=== PATIENT | male | born 1990 | race Caucasian/White ===

== ENCOUNTER 2022-07-25 10:31 | Emergency (ER) | payer BC, SELFPAY ==
[2022-07-25 11:03] VITALS: BP 145/68; PULSE 72; RESP 17; TEMP 36.1; O2SAT 100; BMI 27.9
--- NOTE | 2022-07-25 12:28 | ED.GENADULT ---
HPI - General Adult General Chief complaint: Skin/Abscess/Foreign Body Stated complaint: Cysts Time Seen by Provider: 07/25/22 12:28 Source: patient Mode of arrival: ambulatory Limitations: no limitations History of Present Illness HPI narrative: Patient is a 31 year old assigned male at with a history of pilonidal cysts presenting to the emergency department today with another pilonidal cyst. Patient states that he has had pilonidal cysts in the past that have needed to be cut open. Patient states that he has been referred to a general surgeon before but has never followed up. Patient states that he has a cyst now and it has been getting worse over the last week. Patient denies any dizziness, lightheadedness, abdominal pain, nausea, vomiting, fever, chills, blurry vision, double vision, loss of vision, chest pain, difficulty breathing, shortness of breath, back pain, night sweats, pain with urination, increased urinary frequency, increased urinary urgency, blood in his urine or stool, syncope or a near syncopal episode, recent trauma or falls, bowel incontinence, bladder incontinence, bowel retention, bladder retention, or any other complaints at this time. Onset (ago): week(s) (1) Location: buttocks Radiation: non-radiation Severity: mild Severity scale (1-10): 3 Quality: dull Pain Consistency: constant Relieving factors: none Exacerbating factors: none Associated symptoms: denies other symptoms Treatments prior to arrival: none Related Data Allergies Allergy/AdvReac Type Severity Reaction Status Date / Time No Known Allergies Allergy Unverified 06/12/20 16:08 [No Known Allergies*] Review of Systems Constitutional: Constitutional: Reports no additional constitutional complaints, Denies chills, Denies fever(s) and Denies night sweats Eyes: Eyes: Reports no additional eye complaints, Denies blurry vision, Denies change in vision, Denies diplopia, Denies eye discharge, Denies loss of vision and Denies eye pain ENT: Denies dizziness Cardiovascular: Cardiovascular: Reports no additional cardiovascular complaints, Denies chest pain, Denies lightheadedness, Denies Loss of Consciousness and Denies dyspnea Respiratory: Respiratory: Reports no additional respiratory complaints and Denies dyspnea Gastrointestinal: Gastrointestinal: Reports no additional gastrointestinal complaints, Denies abdominal pain, Denies melena, Denies hematochezia, Denies change in bowel habits and Denies change in stool character Genitourinary: Genitourinary: Reports no additional male genitourinary complaints, Denies hematuria, Denies oliguria, Denies difficulty urinating, Denies dysuria, Denies urinary frequency, Denies urinary hesitancy, Denies urinary incontinence and Denies urinary urgency Musculoskeletal: Musculoskeletal: Reports no additional musculoskeletal complaints, Denies numbness and Denies tingling Integumentary/Breasts: Comments: cyst on left side of gluteal cleft Neurologic: Denies dizziness, Denies loss of vision, Denies numbness and Denies tingling Psychiatric: Psychiatric: Reports no additional psychiatric complaints Endocrine: Endocrine: Reports no additional endocrine complaints Hematologic/Lymphatic: Hematologic/Lymphatic: Reports no additional hematologic/lymphatic complaints Allergic/Immunologic: Allergic/Immunologic: Reports no additional allergic/immunologic complaints [facility] Past Medical History Attestation statement: The following information was validated with the patient. Source: old records reviewed Social History Social History Advance Directives: No Advance Directives Information Provided: No Physical Exam ED Vital Signs: Vital Signs - 24 hr 07/25/22 11:03 Temperature 96.9 F Pulse Rate 72 Respiratory Rate 17 Blood Pressure 145/68 H Pulse Oximetry 100 Oxygen Delivery Method Room Air BMI result Body Mass Index 27.9 Const General: cooperative, no acute distress, alert and awake Nutritional Appearance: well nourished Orientation/consciousness: patient oriented x3 Limitations: no limitations HENMT Head: Yes normal to inspection and Yes atraumatic Ears: hearing grossly normal bilaterally and external ears normal General nose exam: Normal external nose present, no nasal discharge noted and no epistaxis Face and sinus: Yes normal facial exam, No abrasion and No laceration Mouth: Normal oral and palatal mucosa present, no drooling and no muffled voice Eyes General: appearance normal, both eyes and all related structures Periorbital: periorbital findings normal Eyelids: Yes eyelids normal Conjunctivae: conjunctivae normal Pupils: Equal, round and reactive pupils present EOM: EOMs intact bilaterally Neck Neck: Yes normal visual inspection, Yes full ROM and Yes no lymphadenopathy Chest Chest palpation & inspection: normal inspection of the chest Resp Effort & Inspection: normal respiratory effort and able to speak in complete sentences Auscultation: clear to auscultation bilaterally Cardio Rate: regular rate Rhythm: regular rhythm GI Inspection: Yes normal to inspection Skin Other: small area of firmness to the superior aspect of the left gluteal cleft, no fluctuance, no erythema, no warmth Neuro General: patient oriented x3 and moves all extremities Cranial nerves: Yes Equal, round and reactive pupils present Cognition (Neuro): normal cognition Motor exam (neuro): 5/5 motor strength present throughout Sensory Exam: Normal double simultaneous stimulation for sensation Coordination: [id number] test normal Extrem General: Yes normal to inspection, Yes full ROM and Yes capillary refill normal Psych Appearance: grossly normal Mental Status: mental status grossly normal Affect: normal affect Attitude: cooperative Thought process: Normal thought process present Thought content: Normal thought content present Insight: Good insight present (Psych) Medical Decision Making MDM Narrative Medical decision making narrative: Patient is a 31 year old assigned male at with a history of pilonidal cysts presenting to the emergency department today with a pilonidal cyst. Patient's physical exam showed a small area of firmness to the superior aspect of the left gluteal cleft with no erythema, warmth, or fluctuance. I explained my physical exam findings to the patient. I answered all questions asked by the patient. I stressed the importance of the patient taking his medication as prescribed. I stressed the importance of the patient following up with his primary care provider and a general surgeon. I stressed the importance of the patient returning to the emergency department immediately if his symptoms were to worsen or if he were to develop any dizziness, shortness of breath, difficulty breathing, chest pain, blurry vision, loss of vision, nausea, vomiting, abdominal pain, fever, chills, back pain, or any other complaints. Patient verbalized agreement and understanding with this treatment plan and discharge. Medical Records Medical records reviewed: Yes I reviewed the patient's medical records. Discharge Plan Discharge Clinical Impression: Pilonidal cyst Patient Disposition: Home, Self-Care Instructions: Pilonidal Cyst (ED) Additional Instructions: You have a pilonidal cyst that has not yet become an abscess requiring opening. Apply warm compresses to the area. Follow up with your primary care provider and a general surgeon. Return to the emergency department immediately if your symptoms worsen or if you develop any dizziness, shortness of breath, difficulty breathing, chest pain, blurry vision, loss of vision, nausea, vomiting, abdominal pain, fever, chills, back pain, or any other complaints. Referrals: [facility] [place] General Surgeons [Provider Group] (Call to establish and follow up with a general surgeon. ) Jean Paul Bird MD [Primary Care Provider] - Stand Alone Forms: Work/School Release Print Language: Italian
== END 2022-07-25 13:00 | disposition home or self-care (01) ==
PROVIDERS: Emergency Provider Emergency Medicine; PCP Hospitalist
DX: L05.91 Pilonidal cyst without abscess (principal)
CPT/HCPCS: 99281

== ENCOUNTER 2022-08-31 06:21 | Day surgery (SDC) | payer BC, SELFPAY ==
[2022-08-25 11:00] VITALS: BMI 30.1
--- NOTE | 2022-08-30 09:09 | HO.ANESPROP2 ---
Documented by User: Lucia Nassar NP 08/30/22 09:10 HPI - Anesthesia Eval Consult details Narrative: 31yo M for [facility]cision [facility] Active Problems Active Problems: All Active Problems (Updated 08/09/22 @ 15:42 by Samson Hatch MD) Sacrococcygeal pilonidal cyst (Acute) Past Medical History Medical History Sacrococcygeal pilonidal cyst Surgical History Surgical History History of mandibular surgery History of surgery on lower extremity Social History Social History Alcohol intake: never Patient Tobacco Use Status: Never used Tobacco Use of substances other than those prescribed or required for medical reasons: No Are you DNR?: No Advance Directives: No Advance Directives Information Provided: Yes Meds Allergies Allergy/AdvReac Type Severity Reaction Status Date / Time No Known Allergies Allergy Verified 08/31/22 06:30 [No Known Allergies*] Exam Exam Date and Time: August 30, 2022 0909 Height,Weight and Vital Signs: Height 5 ft 10 in Weight 95.254 kg Assessment and Plan Assessment Anesthesia Assessment: Chart Reviewed Documented by User: Leyla Gallagher MD 08/31/22 08:21 [facility] Past Medical History Medical History Sacrococcygeal pilonidal cyst Family History Family history of problems with anesthesia: No Surgical History Surgical History History of mandibular surgery History of surgery on lower extremity History of Problems with Anesthesia: No Social History Social History Alcohol intake: never Patient Tobacco Use Status: Never used Tobacco Use of substances other than those prescribed or required for medical reasons: No Are you DNR?: No Advance Directives: No Advance Directives Information Provided: Yes Meds Allergies Allergy/AdvReac Type Severity Reaction Status Date / Time No Known Allergies Allergy Verified 08/31/22 06:30 [No Known Allergies*] Exam Height,Weight and Vital Signs: Height 5 ft 10 in Weight 95.254 kg Vital Signs Temp Pulse Resp BP Pulse Ox O2 Del Method 08/31/22 06:43 97.7 F 72 15 132/79 99 Room Air Airway Mallampati Class: II TM Dist: >3cm Neck ROM: Full Loose/Missing/Broken Teeth: Yes (Missing tooth top left. Denies broken or loose teeth) Heart: RRR Lungs: CTAB Assessment and Plan Assessment Anesthesia Assessment: Anesthesia Plan Discussed Final Anesthetic Review Family History of Problems with Anesthesia: No History of Problems with Anesthesia: No NPO: Yes ASA Class: I Final Preanesthetic Review: No Changes in Pt Med Stat, Meds/Allgs Chart Reviewed, Consent Obtained/Reviewed and Anes Risks/Benef Reviewed Patient Risk: Low Procedure Risk: Low Assessment/Block/Sedation in SS: Assess/Block/Sedation-SS Anesthetic Plan Anesthetic Plan: GA Disposition: Standard PACU
[2022-08-31] VITALS (7 sets, daily range): BP systolic 123–144; BP diastolic 69–86; PULSE 63–81; RESP 10–16; TEMP 36.1–36.9; O2SAT 98–100
[2022-08-31] MEDS: Lactated Ringers 1,000 ML 100 ML IVCONT (06:52)
--- NOTE | 2022-08-31 07:11 | P.CONAN_ITS ---
[facility] Active Problems Active Problems: All Active Problems (Updated 08/09/22 @ 15:42 by Samson Hatch MD) Sacrococcygeal pilonidal cyst (Acute) Past Medical History Medical History Sacrococcygeal pilonidal cyst Functional capacity: independent ambulation Family History Family history of problems with anesthesia: No Surgical History Surgical History History of mandibular surgery History of surgery on lower extremity History of Problems with Anesthesia: No Social History Social History Alcohol intake: never Patient Tobacco Use Status: Never used Tobacco Use of substances other than those prescribed or required for medical reasons: No Are you DNR?: No Advance Directives: No Advance Directives Information Provided: Yes Travel History History of recent travel: No Narrative Narrative: NPO since 8 pm yesterday Meds Allergies Allergy/AdvReac Type Severity Reaction Status Date / Time No Known Allergies Allergy Verified 08/31/22 06:30 [No Known Allergies*] Active Medications: Current Medications Lactated Ringer's (Lr) 1,000 mls @ 100 mls/hr IVCONT .Q10H CHUCK Last Admin: 08/31/22 06:52 Dose: 100 mls/hr Home Medications Medication Instructions Recorded Confirmed Last Taken Type No Known Home Meds 08/09/22 08/25/22 Unknown History Exam Exam Date and Time: August 31, 2022 0711 Height,Weight and Vital Signs: Height 5 ft 10 in Weight 95.254 kg Last Vital Signs Temp 97.7 F 08/31/22 06:43 Pulse 72 08/31/22 06:43 Resp 15 08/31/22 06:43 BP 132/79 08/31/22 06:43 Pulse Ox 99 08/31/22 06:43 O2 Del Method 08/31/22 06:43 Airway Mallampati Class: II TM Dist: >3cm Neck ROM: Full Loose/Missing/Broken Teeth: No Heart: S1S2 Lungs: clear all throughout Assessment and Plan Final Anesthetic Review Family History of Problems with Anesthesia: No History of Problems with Anesthesia: No Final Preanesthetic Review: No Changes in Pt Med Stat, Meds/Allgs Chart Reviewed, Consent Obtained/Reviewed and Anes Risks/Benef Reviewed Patient Risk: Low Procedure Risk: Low Anesthetic Plan Anesthetic Plan: GA Disposition: Standard PACU
--- NOTE | 2022-08-31 07:21 | MHC.SHP ---
Pre-Procedural Eval Section A Date of Service: 08/31/22 The patient is an INPATIENT: No Changes since office visit: No Cold of Flu in the past 2 weeks, No New Medical Problems, No Changes in Medication and No Patient answered all questions The History & Physical has been completed within 30 days and I have reviewed it.: Yes Section B Chief Complaint: Pilonidal cyst without abscess Allergies: Allergies Allergy/AdvReac Type Severity Reaction Status Date / Time No Known Allergies Allergy Verified 08/31/22 06:30 [No Known Allergies*] Plan I have reviewed the history and physical and performed a pertinent physical examination on my patient. No changes have occurred unless specified.
--- NOTE | 2022-08-31 08:40 | W.PM.OPN ---
Operative Note Operative Note Date of Service: 08/31/22 Narrative: Preop diagnosis: Pilonidal cyst, sacrococcygeal area Postop diagnosis: Pilonidal cyst, sacrococcygeal area Procedure: Excision of pilonidal cyst, sacrococcygeal area Surgeon: Samson Hatch MD broker assistant: MARILY Briones The patient is a 31-year-old male with a recurrent area of pain, swelling and tenderness on the tailbone. He has had an I and D in the past. Examination in the office showed a midline pits with an induration to the left of the midline superior to this. This was consistent with a pilonidal cyst. He understood the technique of excision under anesthesia. He was aware of the risks, benefits, and alternatives He was brought to the operating room. He was placed in prone to position under general anesthesia via endotracheal tube. The buttocks were retracted laterally to expose the midline cleft. Again, the midline pit was noted along with induration above this to the left of the midline. I marked the planned line of incision and infiltrated this with lidocaine 1%. I made the elliptical incision using blade 15. This was carried down through the full-thickness of the skin subcutaneous fat to excise this entire he is getting subcutaneous tissue. This was extended in view of the presence of indurated tissue in the deep subcutaneous layer. I used electrocautery to excise this entire area this was sent as specimen. The excised area was about 8 cm by 3 cm in diameter. This was deep down to just above the layer of the coccyx and sacrum. I used electrocautery to achieve hemostasis as there was lot of oozing throughout the cavity from inflammation. I irrigated. We observed for hemostasis. Once hemostasis was achieved, I proceeded to develop flaps of thick subcutaneous layer on both sides to allow closure without tension. Closed the deep subcutaneous layer with Dexon 3-0 interrupted sutures. Skin closure was achieved with nylon 3-0 vertical mattress sutures alternating with simple interrupted sutures. The incision was infiltrated with Marcaine 0.5% for postop analgesia. Dressings were applied. The procedure was completed. The patient tolerated procedure well. There were no immediate complications. Initial and final counts of sponges and instruments were correct. Estimated blood loss was about 25 cc The patient was extubated without difficulty and transferred to the recovery room with stable vital signs.
[2022-08-31] MEDS: Acetaminophen 325 MG TABLET 650 MG PO (09:39)
[2022-08-31] MEDS: oxyCODONE HCl Immed Release 5 MG TABLET PO (09:40)
== END 2022-08-31 10:09 | disposition home or self-care (01) ==
PROVIDERS: PCP Hospitalist; Visit Provider Surgery
PROC: (CPT 11772; principal; 2022-08-31 07:30)
DX: L05.91 Pilonidal cyst without abscess (principal)
CPT/HCPCS: 11772; 88304; J0690; J1100; J2250; J2405; J2795; J3010

== ENCOUNTER 2023-11-25 19:47 | Emergency (ER) | payer BC, SELFPAY ==
[2023-11-25 19:50] VITALS: BP 154/97; PULSE 96; RESP 14; TEMP 36.3; O2SAT 99; BMI 30.5
--- NOTE | 2023-11-25 19:51 | ED_ITS ---
HPI - General Adult General Chief complaint: Allergic Reaction Stated complaint: reaction to new medication Time Seen by Provider: 11/25/23 22:22 Source: patient Mode of arrival: ambulatory Limitations: no limitations History of Present Illness HPI narrative: Patient is a 33 year old assigned male at with a history of social anxiety presenting to the emergency department today after an adverse reaction to laura lafaxine. Patient states that he took his first dose of venlafaxine this evening and 20 minutes later, he had an episode of feeling shaky and feeling as though his heart was racing. Patient denies any dizziness, lightheadedness, abdominal pain, nausea, vomiting, fever, chills, blurry vision, double vision, loss of vision, chest pain, difficulty breathing, shortness of breath, back pain, night sweats, pain with urination, increased urinary frequency, increased urinary urgency, blood in his urine or stool, syncope or a near syncopal episode, recent trauma or falls, bowel incontinence, bladder incontinence, bowel retention, bladder retention, or any other complaints at this time. Relieving factors: none Exacerbating factors: none Associated symptoms: denies other symptoms Treatments prior to arrival: none Related Data Previous Rx's Medication Instructions Recorded ibuprofen 600 mg tablet 600 mg PO Q6H PRN pain #30 tabs 08/31/22 oxycodone-acetaminophen 5 mg-325 1 tab PO Q4-6H PRN pain #30 tabs 08/31/22 mg tablet (Percocet) Allergies Allergy/AdvReac Type Severity Reaction Status Date / Time No Known Allergies Allergy Verified 11/25/23 19:50 [No Known Allergies*] Review of Systems Constitutional: Constitutional: Reports no additional constitutional complaints, Denies chills, Denies fever(s) and Denies night sweats Eyes: Eyes: Reports no additional eye complaints, Denies blurry vision, Denies change in vision, Denies diplopia, Denies eye discharge, Denies loss of vision and Denies eye pain ENT: Denies dizziness Cardiovascular: Cardiovascular: Reports no additional cardiovascular complaints, Denies chest pain, Denies lightheadedness, Denies Loss of Consciousness, Reports palpitations and Denies dyspnea Respiratory: Respiratory: Reports no additional respiratory complaints and Denies dyspnea Gastrointestinal: Gastrointestinal: Reports no additional gastrointestinal complaints, Denies abdominal pain, Denies melena, Denies hematochezia, Denies change in bowel habits and Denies change in stool character Genitourinary: Genitourinary: Reports no additional male genitourinary complaints, Denies hematuria, Denies oliguria, Denies difficulty urinating, Denies dysuria, Denies urinary frequency, Denies urinary hesitancy, Denies urinary incontinence and Denies urinary urgency Musculoskeletal: Musculoskeletal: Reports no additional musculoskeletal complaints, Denies numbness and Denies tingling Neurologic: Denies dizziness, Denies loss of vision, Denies numbness and Denies tingling Psychiatric: Psychiatric: Reports no additional psychiatric complaints Endocrine: Endocrine: Reports no additional endocrine complaints and Reports palpitations Hematologic/Lymphatic: Hematologic/Lymphatic: Reports no additional hematologi c/lymphatic complaints Allergic/Immunologic: Allergic/Immunologic: Reports no additional allergic/immunologic complaints [facility] Past Medical History Attestation statement: The following information was validated with the patient. Source: old records reviewed and nursing notes reviewed Medical History Sacrococcygeal pilonidal cyst Surgical History History of excision of pilonidal cyst History of surgery on lower extremity History of mandibular surgery Social History Social History Alcohol intake: never Comment: IMPROVED, MEDICATED AT 0940 WITH TYLENOL AND OXYCODONE Patient Tobacco Use Status: Never used Tobacco Advance Directives: No Advance Directives Information Provided: No Physical Exam ED Vital Signs: Vital Signs - 24 hr 11/25/23 19:50 11/25/23 22:22 Temperature 97.4 F 97.8 F Pulse Rate 96 68 Respiratory Rate 14 14 Blood Pressure 154/97 H 153/84 H Pulse Oximetry 99 96 Oxygen Delivery Method Room Air Room Air BMI result Body Mass Index 30.5 Const General: cooperative, no acute distress, alert and awake Nutritional Appearance: well nourished Orientation/consciousness: patient oriented x3 Limitations: no limitations HENMT Head: Yes normal to inspection and Yes atraumatic Ears: hearing grossly normal bilaterally and external ears normal General nose exam: Normal external nose present, no nasal discharge noted and no epistaxis Face and sinus: Yes normal facial exam, No abrasion and No laceration Mouth: Normal oral and palatal mucosa present, no drooling and no muffled voice Eyes General: appearance normal, both eyes and all related structures Periorbital: periorbital findings normal Eyelids: Yes eyelids normal Conjunctivae: conjunctivae normal Pupils: Equal, round and reactive pupils present EOM: EOMs intact bilaterally Neck Neck: Yes normal visual inspection, Yes full ROM and Yes no lymphadenopathy Chest Chest palpation & inspection: normal inspection of the chest Resp Effort & Inspection: normal respiratory effort and able to speak in complete sentences Cardio Rate: regular rate Rhythm: regular rhythm GI Inspection: Yes normal to inspection Neuro General: patient oriented x3 and moves all extremities Cranial nerves: Yes Equal, round and reactive pupils present Cognition (Neuro): normal cognition Motor exam (neuro): 5/5 motor strength present throughout Sensory Exam: Normal double simultaneous stimulation for sensation Coordination: [id number] test normal Extrem General: Yes normal to inspection, Yes full ROM and Yes capillary refill normal Psych Appearance: grossly normal Mental Status: mental status grossly normal Affect: normal affect Attitude: cooperative Thought process: Normal thought process present Thought content: Normal thought content present Insight: Good insight present (Psych) Course Course Course Narrative: RME- 33 year old male presents for evaluation of medication reaction. He reports taking Venlafexine for the first time about 20 minutes prior to arrival. He complains of nausea, chest tightness since he started taking. Denies swelling and rash. Plan to observe Medical Decision Making Medical Decision Making MDM Narrative: Patient is a 33 year old assigned male at with a history of social anxiety presenting to the emergency department today after an adverse reaction to venlafaxine. Patient's physical exam was unremarkable. Patient's EKG was unremarkable. I explained my physical exam findings as well as all test results to the patient. I answered all questions asked by the patient. I stressed the importance of the patient taking his other medication as prescribed and stopping the venlafaxine. I stressed the importance of the patient following up with his primary care provider and discussing alternatives to venlafaxine. I stressed the importance of the patient returning to the emergency department immediately if his symptoms were to worsen or if he were to develop any dizziness, shortness of breath, difficulty breathing, chest pain, blurry vision, loss of vision, nausea, vomiting, abdominal pain, fever, chills, back pain, or any other complaints. Patient verbalized agreement and understanding with this treatment plan and discharge. Differential Diagnosis Differential Diagnoses: The differential diagnosis associated with the presentation includes Adverse drug reaction Anxiety Medication reaction Admission/Observation Consideration of admission/observation: Escalation of care including admission/observation considered Patient would have been admitted to the hospital had his work up had any findings where hospital admission was appropriate and his clinical presentation warranted hospital admission. Independent Interpretation I performed an independent interpretation of an: EKG Interpretation: Vent. Rate: 069 BPM Atrial Rate: 069 BPM P-R Int: 166 ms QRS Dur: 090 ms QT Int: 366 ms P-R-T Axes: 033 046 022 degrees QTc Int: 392 ms Normal sinus rhythm Normal ECG No previous ECGs available DD/ 43 Radiology Impression Discussion of test interpretation with radiology: I have reviewed the radiologist's reading. Discharge Plan Discharge Clinical Impression: Adverse reaction to drug Patient Disposition: Home, Self-Care Instructions: Adverse Drug Reaction (ED) Additional Instructions: STOP taking the Venlafaxine. Follow up with your primary care provider. Return to the emergency department immediately if your symptoms worsen or if you develop any dizziness, shortness of breath, difficulty breathing, chest pain, blurry vision, loss of vision, nausea, vomiting, abdominal pain, fever, chills, back pain, or any other complaints. Prescriptions: No Action oxycodone-acetaminophen [Percocet] 5-325 mg tablet 1 tab PO Q4-6H PRN (Reason: pain) Qty: 30 0RF Rx Instructions: Partial Fill upon patient request. ibuprofen 600 mg tablet 600 mg PO Q6H PRN (Reason: pain) Qty: 30 0RF Referrals: Jean Paul Bird MD [Physician] - Interventions: ED Discharge Assessment Last Done: 11/25/23 22:27 Discharge Date/Time: 11/25/23 22:28 Print Language: Pashto
--- NOTE | 2023-11-25 20:24 | ECG_ITS ---
Test Reason : ALLGERIC REATION Blood Pressure : / mmHG Vent. Rate : 069 BPM Atrial Rate : 069 BPM P-R Int : 166 ms QRS Dur : 090 ms QT Int : 366 ms P-R-T Axes : 033 046 022 degrees QTc Int : 392 ms Normal sinus rhythm Normal ECG No previous ECGs available Referred By: Priyanka Sousa Electronically Signed By:ROMERO COHN
[2023-11-25 22:22] VITALS: BP 153/84; PULSE 68; RESP 14; TEMP 36.6; O2SAT 96
== END 2023-11-25 22:28 | disposition home or self-care (01) ==
LOC: HO.ED 22:26
PROVIDERS: Emergency Provider Internal Medicine; PCP Nurse Practitioner Family
DX: R07.89 Other chest pain (principal); R11.0 Nausea; T43.215A Adverse effect of selective serotonin and norepinephrine reuptake inhibitors, initial encounter; Y92.9 Unspecified place or not applicable
CPT/HCPCS: 93005; 99283; 99284